=== PATIENT | female | born 1965 | race Caucasian/White ===

== ENCOUNTER 2024-06-17 11:14 | Emergency (ER) | payer OTHER, SELFPAY ==
--- NOTE | ~2024-06-17 | XR_ITS ---
CHEST RADIOGRAPH, PA AND LATERAL CLINICAL HISTORY: cough, shortness of breath, chest discomfort . COMPARISON: None available TECHNIQUE: PA and lateral views of the chest. FINDINGS The cardiomediastinal silhouette is unremarkable. Asymmetry within the left mid to lower lung field for which an early infiltrate is suspected (versus overlying soft tissues). The remainder of the lungs are clear. Visualized osseous structures and soft tissues are unremarkable. IMPRESSION: Asymmetry within the left mid to lower lung field for which an early infiltrate is suspected (versus overlying soft tissues) for which cross-sectional imaging (noncontrast enhanced CT examination of the chest) is recommended for further evaluation. Reviewed, dictated and finalized at location A.
--- NOTE | 2024-06-17 11:18 | ED.URI ---
HPI - URI/Sore Throat General Chief Complaint: Upper Respiratory Infection Stated Complaint: cough / chest pain / SOB / Ear Pain Time Seen by Provider: 06/17/24 11:18 Source: patient Mode of arrival: ambulatory Limitations: no limitations History of Present Illness HPI Narrative: Minnie is a 58-year-old female patient presenting to the clinic today with complaints of cough, chest discomfort, shortness of breath, and ear pain x4 days. She reports her symptoms started as a URI and now is down into her chest. States her chest hurts when she coughs. Cough is productive at times a nonproductive at other times. History mild emphysema. She continues to be a 1 pack-per day smoker. No fever or chills. MD elicited complaint: cough, nasal congestion and other (Shortness of breath, ear pain, chest discomfort) Related Data Home Medications Medication Instructions Recorded Confirmed amlodipine 5 mg tablet 5 mg PO DAILY 06/17/24 06/17/24 cyclobenzaprine 10 mg tablet 10 mg PO PRN PRN Muscle Pain 06/17/24 06/17/24 hydrochlorothiazide 25 mg tablet 25 mg PO DAILY 06/17/24 06/17/24 omeprazole 40 mg capsule,delayed 40 mg PO DAILY 06/17/24 06/17/24 release ropinirole 0.5 mg tablet 0.5 mg PO HS 06/17/24 06/17/24 topiramate 50 mg tablet 50 mg PO HS 06/17/24 06/17/24 trazodone 50 mg tablet 50 mg PO HS 06/17/24 06/17/24 Allergies Allergy/AdvReac Type Severity Reaction Status Date / Time No Known Allergies Allergy Verified 06/17/24 11:24 Review of Systems Review of Systems: Pertinent positives per HPI. Patient denies any fever, chills, rash, headache, visual changes, dizziness, palpitations, nausea, vomiting, diarrhea, constipation, abdominal pain, or any urinary issues. PMFSH Comments At the time of my signature, I reviewed and agree with the nursing past medical, surgical, social, and family history. There is no relevant family history pertinent to the patient complaint. Exam Narrative: General: Well-developed,obese, acute ill-appearing Head: Normocephalic, atraumatic Eyes: Pupils equally round and reactive to light bilaterally, EOM intact, sclera and conjunctive clear, no discharge, lids normal Ears: TMs intact and congested, ear canals clear, no drainage, grossly hearing normal. Nose: Nares patent, clear discharge, no inflammation, no sinus tenderness. Mouth: Oral pharynx without lesions or masses, good dentition, MMM. Postnasal drip Neck: Supple, trachea midline, no enlargement of anterior or posterior cervical nodes, no thyroid masses or goiter palpable. Cardio: Regular rate and rhythm, s1 and s2 normal, no murmur appreciated. Resp: Lung sounds tight with inspiratory rhonchi and expiratory wheezing, no rales or rubs Course Course Emergency Course: Portions of this record may have been created with voice recognition software. Level of Care: Express Care Visit Vital Signs Vital signs: Vital signs reviewed MDM - URI/Sore Throat MDM Narrative Medical decision making narrative: At the time of visit patient is resting comfortably on the exam table. Patient appears to be nontoxic. Labs: COVID and influenza testing performed and was negative in the clinic today Diagnostics: Chest x-ray was performed and shows a possible early infiltrate to the left mid to lower lung field Plan: I suspect patient has left-sided pneumonia. Prescription for prednisone, albuterol inhaler, azithromycin, and Augmentin was sent to the pharmacy. Supportive measures were discussed with the patient and they voiced understanding discharge instructions and agrees to treatment plan. Return precautions reviewed Differential Diagnosis Differential diagnosis: Likely upper respiratory infection, otitis media, sinusitis, viral infection, bronchitis, influenza, pharyngitis and other (COVID) Imaging Data Radiologist's impression: ITS Impressions Chest X-Ray 06/17/24 11:51 IMPRESSION: Asymmetry within the left mid to lower lung george
[2024-06-17 11:30] VITALS: BP 141/90; PULSE 86; RESP 20; TEMP 36.5; O2SAT 92
[2024-06-17 11:34] VITALS: O2SAT 94
[2024-06-17 11:41] VITALS: PULSE 82; RESP 20; O2SAT 94
[2024-06-17 11:45] LABS: EDCOVIDSCREEN Negative (Negative); EDINFLUASCREEN Negative (Negative); EDINFLUBSCREEN Negative (Negative)
[2024-06-17] MEDS: IPRATROPIUM 0.5 MG/ALBUTEROL SULFATE 2.5 MG AMPUL.NEB 3 ML INHALATION (11:47)
[2024-06-17 12:06] VITALS: PULSE 92; RESP 20; O2SAT 95
== END 2024-06-17 12:07 | disposition home or self-care (01) ==
PROVIDERS: Emergency Provider Nurse Practitioner Family
DX: J18.1 Lobar pneumonia, unspecified organism (principal); Z20.822 Contact with and (suspected) exposure to COVID-19; F17.200 Nicotine dependence, unspecified, uncomplicated; E78.00 Pure hypercholesterolemia, unspecified; I10 Essential (primary) hypertension; K21.9 Gastro-esophageal reflux disease without esophagitis; M19.90 Unspecified osteoarthritis, unspecified site; G25.81 Restless legs syndrome; Z86.16 Personal history of COVID-19
CPT/HCPCS: 71046; 87426; 87804; 94640; 99213; G0463